=== PATIENT | male | born 1940 | race African-American/Black ===

== ENCOUNTER 2018-07-30 12:34 | Inpatient (IN) | payer BC, OTHER ==
[~2018-07-30] VITALS: Ht 180.3 cm; Wt 83.6 kg
[2018-07-30 13:17] VITALS: Ht 180.3 cm; Wt 83.6 kg
[2018-07-30] MEDS ORDERED: CEFEPIME 2GM/50 ML (PMX) 50 ML IVPB STA (13:17)
[2018-07-30] MEDS ORDERED: SODIUM CHLORIDE 0.9% 1L BAG IV* STA (13:17)
[2018-07-30] MEDS ORDERED: ACETAMINOPHEN 325 MG TAB PO STA (13:17)
[2018-07-30] MEDS ORDERED: VANCOMYCIN 1 GM (PMX) 250 ML IVPB ONE (13:30)
[2018-07-30] MEDS ORDERED: ASPI-903 PO (13:48)
[2018-07-30] MEDS ORDERED: OMEP20CA16 PO (13:53)
[2018-07-30] MEDS ORDERED: FER325 PO (13:54)
[2018-07-30] MEDS ORDERED: LOSA1TAB25 PO (13:54)
[2018-07-30] MEDS ORDERED: SIMV40TA2 PO (13:55)
[2018-07-30] MEDS ORDERED: METO-448 PO (13:55)
--- NOTE | 2018-07-30 14:14 | ERD ---
ER Documentation Chief Complaint Chief Complaint Pt. DELLA RA with c/o shakey, N/V HPI This is a 77-year-old man who was at home and his son reported that he was shaking. The patient says he was shaking heart but was not a seizure because he was awake. The patient is likely having a Rigor, or hard chill as he has a low- grade fever now. Patient states that he has had dysuria for many days with nausea vomiting and diarrhea here today. No abdominal pain no headache no flank pain. No fever until today. ROS All systems reviewed and are negative except as per history of present illness. Medications Home Meds Reported Medications Simvastatin* (Zocor*) 40 Mg Tablet, 40 MG PO QHS, #30 TAB 07/30/18 Metoprolol Tartrate* (Lopressor*) 25 Mg Tab, 25 MG PO BID, #60 TAB 07/30/18 Ferrous Sulfate* (Ferrous Sulfate*) 325 Mg Tabec, 325 MG PO DAILY, TAB 07/30/18 Losartan-Hydrochlorothiazide (Losartan-HCTZ) 100-25 Mg Tab, 1 TAB PO DAILY 07/30/18 Omeprazole* (Omeprazole*) 20 Mg Capsule.dr, 20 MG PO AC BREAKFAST, #30 CAP 07/30/18 Aspirin* (Aspirin* Chew) 81 Mg Tab.chew, 81 MG PO DAILY, TAB.CHEW 07/30/18 Allergies Allergies: Coded Allergies: No Known Allergy (Unverified , 07/30/18) PMhx/Soc History of Surgery: Yes (CABG) Anesthesia Reaction: No Hx Neurological Disorder: No Hx Respiratory Disorders: No Hx Cardiac Disorders: Yes (HTN) Hx Psychiatric Problems: No Hx Miscellaneous Medical Probl: No Hx Alcohol Use: Yes Hx Substance Use: Yes (marijuana) Hx Tobacco Use: Yes Smoking Status: Former smoker FmHx Family History: No coronary disease Physical Exam Vitals Vital Signs Date Temp Pulse Resp B/P (MAP) Pulse Ox O2 O2 Flow FiO2 Time Delivery Rate 07/30/18 110 20 109/60 97 Room Air 14:53 (76) 07/30/18 100.0 13:43 07/30/18 100.0 132 22 120/64 96 13:17 (82) Physical Exam Const: Well-developed, well-nourished Head: Atraumatic, normocephalic Eyes: Normal Conjunctiva, PERRLA, EOMI, normal sclera, no nystagmus ENT: Normal External Ears, Nose and Mouth, moist mucus membranes. Neck: Full range of motion. No meningismus, no lymphadenopathy. Resp: Clear to auscultation bilaterally, no wheezing, rhonchi, rales Cardio: Regular rate and rhythm, no murmurs, S1 S2 present Abd: Soft, non tender x 4, non distended. Normal bowel sounds, no guarding or rebound, no pulsitile abdominal masses or bruits Skin: No petechiae or rashes, no ecchymosis , no maculopapular rash Back: No midline or flank tenderness Ext: No cyanosis, or edema, FROM x 4, normal inspection, neurovascularly intact x 4 Neur: Awake and alert, STR 5/5 x 4, sensation intact x 4, no focal findings, cerebellum intact Psych: Normal Mood and Affect Result Diagram: 07/30/18 1325 07/30/18 1325 Results 24 hrs Laboratory Tests Test 07/30/18 13:20 07/30/18 13:25 07/30/18 13:39 Urine Color RUBEN Urine Clarity CLOUDY Urine pH 6.0 Urine Specific [place] 1.011 Urine Ketones NEGATIVE mg/dL Urine Nitrite POSITIVE mg/dL Urine Bilirubin NEGATIVE mg/dL Urine Urobilinogen NEGATIVE mg/dL Urine Leukocyte Esterase 3+ Rach/ul Urine Microscopic RBC > 182 /HPF Urine Microscopic WBC > 182 /HPF Urine Mucus FEW /HPF Urine Hemoglobin 3+ mg/dL Urine Glucose NEGATIVE mg/dL Urine Total Protein 3+ mg/dl White Blood Count 5.9 10^3/ul Red Blood Count 4.43 10^6/ul Hemoglobin 13.0 g/dl Hematocrit 37.5 % Mean Corpuscular Volume 84.7 fl Mean Corpuscular Hemoglobin 29.3 pg Mean Corpuscular 34.7 g/dl Hemoglobin Concent Red Cell Distribution Width 13.3 % Platelet Count 120 10^3/UL Mean Platelet Volume 11.1 fl Immature Granulocytes % 1.200 % Neutrophils % 90.0 % Lymphocytes % 7.8 % Monocytes % 0.7 % Eosinophils % 0.0 % Basophils % 0.3 % Nucleated Red Blood Cells % 0.0 /100WBC Immature Granulocytes # 0.070 10^3/ul Neutrophils # 5.3 10^3/ul Lymphocytes # 0.5 10^3/ul Monocytes # 0.0 10^3/ul Eosinophils # 0.0 10^3/ul Basophils # 0.0 10^3/ul Nucleated Red Blood Cells # 0.0 10^3/ul Sodium Level 134 mmol/L Potassium Level 3.3 mmol/L Chloride Level 99 mmol/L Carbon Dioxide Level 22 mmol/L Anion Gap 13 Blood Urea Nitrogen 18 mg/dl Creatinine 1.36 mg/dl Est Glomerular Filtrat mL/min Rate mL/min Glucose Level 147 mg/dl Calcium Level 8.7 mg/dl Total Bilirubin 1.4 mg/dl Direct Bilirubin 0.00 mg/dl Indirect Bilirubin 1.4 mg/dl Aspartate Amino 19 IU/L Transf (AST/SGOT) Alanine 28 IU/L Aminotransferase (ALT/SGPT) Alkaline Phosphatase 168 IU/L Troponin I < 0.012 ng/ml Total Protein 7.1 g/dl Albumin 3.7 g/dl Globulin 3.40 g/dl Albumin/Globulin Ratio 1.08 POC Venous Lactate 2.2 mmol/L Current Medications Medications Dose Sig/Martha Start Time Status Last (Trade) Ordered Route PRN Stop Time Admin Dose Reason Admin 650 mg ONCE STAT 07/30/18 DC 07/30/18 Acetaminophen PO 13:17 13:43 (Tylenol 07/30/18 Tab) 13:21 Cefepime HCl 50 ml @ ONCE STAT 07/30/18 DC 07/30/18 100 mls/hr IVPB 13:17 13:43 07/30/18 13:46 Vancomycin 250 ml @ ONCE ONCE 07/30/18 07/30/18 HCl 125 mls/hr IVPB 13:30 14:10 07/30/18 15:29 Sodium 2,510 ml BOLUS OVER 2 07/30/18 DC 07/30/18 Chloride HOURS STAT 13:17 13:43 (NS) IV* 07/30/18 13:21 Procedures/MDM MR #: [id number] DOS: 07/30/18 1317 Ordering MD: SUNIL LAU DO Location: E/R Room/Bed: PROCEDURE: XR Chest CLINICAL INDICATION: Possible sepsis TECHNIQUE: Frontal view of the chest COMPARISON: None available FINDINGS: The cardiomediastinal silhouette size is within normal limits. Median sternotomy wires and multiple mediastinal clips are noted. There are atherosclerotic calcifications of the aorta. Mild elevation of the right hemidiaphragm. There are prominent bilateral interstitial markings. There is no evidence of significant pleural effusion or pneumothorax. No suspicious osseous lesions. IMPRESSION: Mild prominent interstitial markings may represents mild vascular congestion or other pulmonary infiltrate . RPTAT: KK Farhat Pike Physician Date Time Electronically viewed and signed by Farhat Pike, Physician on 07/30/2018 13:53 HtN/ CC: SUNIL LAU DO [id number] EKG: Rate/Rhythm: Sinus tachycardia heart rate 124 QRS, ST, QT: NORMAL IA, QRS, QT] Impression: Sinus tachycardia Admit MDM: Patient's infectious symptoms have not stabilized and the patient is at risk of rapid decompensation. The patient will be admitted for careful hydration, antibiotic therapy, and infectious source control. Severe Sepsis criteria: Infectious source: Urine End organ damage indicated by: Elevated lactate Lactate > 2.0 mmol/L Hypotension (SBP < 90 or >40 mmHG drop or MAP < 65) Acute Resp Failure (sat < 92% w/o oxygen) [place] > 2.0 INR > 1.5 Plt < 100 Bili > 2 Sepsis Management: Time of recognition of severe sepsis: At time of lactate Within 3 hours of recognition: Blood cultures x 2 before broad-spectrum antibiotics: []Yes 30 ml/kg NS bolus []Completed Initial lactate 2.2 Repeat lactate []Not indicated as initial lactate < 2.0 Septic Shock Assessment: Any lactic acid > 4.0 []No Persistent hypotension (SBP < 90 or 40 mmHg drop, MAP < 65) despite 30 mL/kg IV fluid bolus []No : Comfort care []No Hypotension caused by: pt. baseline, med-induced, erroneous value, condition other than infection []No Refusal by patient/decision maker for: blood draw, IVF, Antibiotics, Pressors []No Accepting Care Team Current data and ongoing care discussed. Time: [] Admitting Physician: Panel Farm Crew Leader(s): Outstanding Data: []None Critical Care Time: 30minutes Treatments/Evaluations: Close monitoring and treatment of unstable vital signs, cardiorespiratory, and neurologic status, while maintaining tight balance of fluid, respiratory, and cardiac interventions. This includes the administration of emergency fluid management while maintaining close respiratory support as well as the provision of immediate and broad-spectrum antibiotic therapy, while performing a simultaneous assessment for possible sources in order to direct targeted therapy. This time includes discussing the case with the patient and the patient's family. This time also includes the consideration for invasive and chemical support to prevent cardiopulmonary collapse. This time does not include all procedures stated elsewhere in this record. This time also includes reviewing old records, labs and radiological studies. This time includes examining and re-examining the patient. Additionally, this time also includes arranging care with admitting and consulting physicians. Departure Diagnosis: Primary Impression: Sepsis Sepsis type: sepsis due to unspecified organism Qualified Codes: A41.9 - Sepsis, unspecified organism Additional Impression: Urinary tract infection Urinary tract infection type: site unspecified Hematuria presence: without hematuria Qualified Codes: N39.0 - Urinary tract infection, site not specified Condition: Stable SUNIL LAU DO Jul 30, 2018 14:14
[2018-07-30] MEDS ORDERED: SOD CHLORIDE 0.9% 1,000 ML IV SCH ×2 (15:02→17:30)
[2018-07-30] MEDS ORDERED: ONDANSETRON 4 MG INJ IV PRN (15:30)
[2018-07-30] MEDS ORDERED: ACETAMINOPHEN 325 MG TAB PO PRN (15:30)
[2018-07-30 16:55] VITALS: PULSE 109
[2018-07-30] MEDS ORDERED: POTASSIUM CHLORIDE (SR) 20 MEQ TAB PO STA (17:29)
--- NOTE | 2018-07-30 19:22 | NUR ---
END FO SHIFT AWAKE AND ALERT MALE PATIENT.VITAL SIGN WAS STABLE AND S.TACHY ON THE MONITOR.NO RESPIRATORY DISTRESS ON ROOM AIR.ON ANTIBIOTICS FOR INFECTION. KEEP ON BED ALARM FOR PREVENT FALL.RUNNING NS@75ML/HR.DEMONSTRATE HOW TO USE CALL LIGHT. PATIENT DENIES CHEST PAIN AND MONITORING PATIENT.
[2018-07-30] MEDS ORDERED: DORZ10DR5 BOTH EYES (19:45)
[2018-07-30] MEDS ORDERED: COMBIG5 BOTH EYES (19:45)
[2018-07-30] MEDS ORDERED: TRAV4OP25 BOTH EYES (19:45)
[2018-07-30 20:00] VITALS: PULSE 93
[2018-07-30 20:21] VITALS: BP 87/52; PULSE 97; RESP 18
[2018-07-30] MEDS: METOPROLOL 25 MG TAB PO SCH (21:00)
[2018-07-30] MEDS: LOSARTAN 50 MG TAB PO SCH (21:00)
[2018-07-30] MEDS: DORZOLAMIDE 2% 10 ML OPH BOTH EYES SCH (21:30)
[2018-07-30] MEDS: BRIMONIDINE 0.2%-TIMOLOL 0.5% 5ML OPH BOTH EYES SCH (21:30)
[2018-07-30] MEDS: CEFEPIME 2GM/50 ML (PMX) 50 ML IVPB SCH (21:45)
[2018-07-30] MEDS: ATORVASTATIN 40 MG TAB PO SCH (21:46)
[2018-07-30] MEDS: FAMOTIDINE 20 MG TAB PO SCH (21:46)
[2018-07-30] MEDS: LATANOPROST 0.005% 2.5 ML OPH BOTH EYES SCH (22:47)
[2018-07-30 23:12] VITALS: BP 118/63; PULSE 93; RESP 18
[2018-07-31] VITALS (12 sets, daily range): BP systolic 106–131; BP diastolic 55–72; PULSE 80–104; RESP 18–20
--- NOTE | 2018-07-31 07:45 | NUR ---
EOSS: NO ACUTE EVENTS OVERNIGHT. PATIENT VERBALIZED HE'S FEELING BETTER. NSR ON THE MONITOR.
[2018-07-31] MEDS: CEFEPIME 2GM/50 ML (PMX) 50 ML IVPB SCH ×2 (08:51→22:03)
[2018-07-31] MEDS: DORZOLAMIDE 2% 10 ML OPH BOTH EYES SCH ×2 (08:51→20:59)
[2018-07-31] MEDS: BRIMONIDINE 0.2%-TIMOLOL 0.5% 5ML OPH BOTH EYES SCH ×2 (08:51→20:59)
[2018-07-31] MEDS: ASPIRIN 81 MG TAB PO SCH (08:52)
[2018-07-31] MEDS: LOSARTAN 50 MG TAB PO SCH ×2 (08:52→21:00)
[2018-07-31] MEDS: FAMOTIDINE 20 MG TAB PO SCH ×2 (08:52→21:00)
[2018-07-31] MEDS: FERROUS SULFATE (EC) 325 MG TAB PO SCH (08:52)
[2018-07-31] MEDS: METOPROLOL 25 MG TAB PO SCH ×2 (08:53→21:00)
[2018-07-31] MEDS ORDERED: SOD CHLORIDE 0.9% 1,000 ML IV SCH (09:30)
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
--- NOTE | 2018-07-31 18:41 | NUR ---
EOSS: A/O x 4, laying comfortably in bed, VS stable, SR on monitor. Pt had gram neg. rods on blood culture, Dr. Lea aware and orders given and carried out. No other acute events. All needs attended at this time. Will endorse to oncoming shift accordingly.
[2018-07-31] MEDS: LATANOPROST 0.005% 2.5 ML OPH BOTH EYES SCH (20:59)
[2018-07-31] MEDS: ATORVASTATIN 40 MG TAB PO SCH (21:00)
[2018-08-01] VITALS (11 sets, daily range): BP systolic 110–146; BP diastolic 57–74; PULSE 68–89; RESP 18–20
[2018-08-01] MEDS: ASPIRIN 81 MG TAB PO SCH (09:11)
[2018-08-01] MEDS: BRIMONIDINE 0.2%-TIMOLOL 0.5% 5ML OPH BOTH EYES SCH ×2 (09:11→20:51)
[2018-08-01] MEDS: DORZOLAMIDE 2% 10 ML OPH BOTH EYES SCH ×2 (09:11→20:51)
[2018-08-01] MEDS: FAMOTIDINE 20 MG TAB PO SCH ×2 (09:12→20:52)
[2018-08-01] MEDS: FERROUS SULFATE (EC) 325 MG TAB PO SCH (09:12)
[2018-08-01] MEDS: METOPROLOL 25 MG TAB PO SCH ×2 (09:12→20:52)
[2018-08-01] MEDS: CEFEPIME 2GM/50 ML (PMX) 50 ML IVPB SCH (09:13)
[2018-08-01] MEDS: LOSARTAN 50 MG TAB PO SCH ×2 (09:13→20:52)
--- NOTE | 2018-08-01 10:42 | PN ---
Date/Time of Note Date/Time of Note DATE: 08/01/18 TIME: 10:31 Assessment/Plan VTE Prophylaxis Risk score (from Ns)>0 risk: 6 [place] [facility]CD contraindicated: low risk/ambulating Pharmacological prophylaxis: NA/contraindicated Pharm contraindication: low risk/ambulating Lines/Catheters [facility] Saline Lock Assessment/Plan Assessment/Plan 77-year-old male with: 1. Urinary tract infection, E coli, velez sensitive, changed abx to Cipro IV Repeat blood cultures yesterday pending Renal ultrasound wnl Monitor on telemetry for another 24 hours and d/c plan in AM if repeat blood cx negative 2. Gram-negative xochilt bacteremia, likely E coli On Cipro F/u blood cx results and repeat blood cx for clearance 3. Acute kidney injury, in setting of UTI, holding diuretics/HCTZ, renal function back to normal D/c IV fluids. 4. Hypokalemia: Resolved 5. Coronary artery disease, neg troponins Continue outpatient medications. 6. Hypertension: Continue home medications, patient on beta-blockers and losartan. 7. Hyperlipidemia: Continue statin therapy. 8. Chronic anemia: Continue iron supplementation, stable H&H. Prophylaxis: SCDs for DVT prophylaxis, patient tolerating p.o. Disposition: Patient doing well, discharge planning for tomorrow on oral ciprofloxacin as long as repeat blood cultures remain negative and admission blood cultures are confirmed to be E. coli similar to urine culture. Result Diagram: 08/01/18 0530 08/01/18 0530 Results 24hrs Laboratory Tests Test 08/01/18 05:30 White Blood Count 9.2 Red Blood Count 3.66 L Hemoglobin 10.8 L Hematocrit 31.0 L Mean Corpuscular Volume 84.7 Mean Corpuscular Hemoglobin 29.5 Mean Corpuscular Hemoglobin Concent 34.8 Red Cell Distribution Width 13.3 Platelet Count 126 L Mean Platelet Volume 11.3 H Immature Granulocytes % 0.700 H Neutrophils % 78.2 H Lymphocytes % 10.5 L Monocytes % 9.2 Eosinophils % 1.2 Basophils % 0.2 Nucleated Red Blood Cells % 0.0 Immature Granulocytes # 0.060 H Neutrophils # 7.2 Lymphocytes # 1.0 Monocytes # 0.8 Eosinophils # 0.1 Basophils # 0.0 Nucleated Red Blood Cells # 0.0 Sodium Level 137 Potassium Level 3.8 Chloride Level 107 Carbon Dioxide Level 24 Anion Gap 6 Blood Urea Nitrogen 18 Creatinine 1.07 Est Glomerular Filtrat Rate mL/min Glucose Level 98 Calcium Level 8.5 Phosphorus Level 2.5 Magnesium Level 1.9 Subjective 24 Hr Interval Summary Free Text/Dictation Patient doing well, afebrile, WBC normalized, vital signs within normal. Urine culture with E. coli pansensitive, switching antibiotics to ciprofloxacin. Follow-up repeat blood cultures and finalized blood cultures on admission Exam/Review of Systems Vital Signs Vitals Vital Signs Date Temp Pulse Resp B/P (MAP) Pulse Ox O2 O2 Flow FiO2 Time Delivery Rate 08/01/18 85 08:42 08/01/18 99.4 19 128/70 96 07:39 (89) 07/31/18 Room Air 15:47 Intake and Output 07/31/18 07/31/18 08/01/18 1515:00 23:00 07:00 IntakeIntake Total 2000 ml OutputOutput Total 1500 ml BalanceBalance 500 ml Exam Constitutional: alert, oriented, well developed Respiratory: clear to auscultation, normal air movement Cardiovascular: regular rate and rhythm, nl pulses Gastrointestinal: soft, non-tender Musculoskeletal: nl extremities to inspection Extremities: normal pulses, other (No edema, clubbing or cyanosis) Neurological: PRODUCTION LINE MANAGER II-XII intact, nl mental status, nl speech, nl strength Medications Medications Current Medications Aspirin (Aspirin) 81 mg DAILY PO Last administered on 08/01/18at 09:11; Admin Dose 81 MG; Start 07/31/18 at 09:00 Ferrous Sulfate (Ferrous Sulfate (Ec)) 325 mg DAILY PO Last administered on 08/01/18at 09:12; Admin Dose 325 MG; Start 07/31/18 at 09:00 Metoprolol Tartrate (Lopressor) 25 mg BID PO Last administered on 08/01/18at 09:12; Admin Dose 25 MG; Start 07/30/18 at 21:00 Losartan Potassium (Cozaar) 50 mg BID PO Last administered on 08/01/18at 09:13; Admin Dose 50 MG; Start 07/30/18 at 21:00 Atorvastatin Calcium (Lipitor) 40 mg HS PO Last administered on 07/31/18at 21:00; Admin Dose 40 MG; Start 07/30/18 at 21:00 Famotidine (Pepcid) 20 mg BID PO Last administered on 08/01/18 09:12; Admin Dose 20 MG; Start 07/30/18 at 21:00 Latanoprost (Xalatan) 1 drop HS BOTH EYES Last administered on 07/31/18 20:59; Admin Dose 1 DROP; Start 07/30/18 at 21:30 Dorzolamide HCl (Trusopt) 1 drop BID BOTH EYES Last administered on 08/01/18 09:11; Admin Dose 1 DROP; Start 07/30/18 at 21:30 Brimonidine/ Timolol (Combigan Oph) 1 drop BID BOTH EYES Last administered on 08/01/18 09:11; Admin Dose 1 DROP; Start 07/30/18 at 21:30 Ciprofloxacin/ Dextrose 200 ml @ 200 mls/hr Q12 IVPB ; Start 08/01/18 at 10:30 PARESH HATFIELD Aug 01, 2018 10:41
[2018-08-01] MEDS: CIPROFLOXACIN 400MG/D5W 200 ML IVPB SCH ×2 (11:43→20:53)
[2018-08-01] MEDS: ATORVASTATIN 40 MG TAB PO SCH (20:52)
[2018-08-01] MEDS: LATANOPROST 0.005% 2.5 ML OPH BOTH EYES SCH (20:52)
[2018-08-02] VITALS (7 sets, daily range): BP systolic 117–125; BP diastolic 59–69; PULSE 70–93; RESP 18–20
--- NOTE | 2018-08-02 01:20 | NUR ---
Positive blood culture for gram positive cocci in clusters read by Larissa. Dr. Lea notified, no new orders given.
--- NOTE | 2018-08-02 06:37 | NUR ---
EOSS: Pt resting in bed. VS stable. Denies pain, SOB. Pt to finish abx, and be d/c home w/ home abx. Rounded on hourly, bed in locked and low position, bed alarm green, bed rail x2, call light within reach, pt reminded to call when in need assistance. Will endorse to dayshift RN.
[2018-08-02] MEDS: CIPROFLOXACIN 400MG/D5W 200 ML IVPB SCH (08:44)
[2018-08-02] MEDS: METOPROLOL 25 MG TAB PO SCH (08:44)
[2018-08-02] MEDS: FAMOTIDINE 20 MG TAB PO SCH (08:44)
[2018-08-02] MEDS: ASPIRIN 81 MG TAB PO SCH (08:44)
[2018-08-02] MEDS: LOSARTAN 50 MG TAB PO SCH (08:44)
[2018-08-02] MEDS: FERROUS SULFATE (EC) 325 MG TAB PO SCH (08:44)
[2018-08-02] MEDS: BRIMONIDINE 0.2%-TIMOLOL 0.5% 5ML OPH BOTH EYES SCH (08:45)
[2018-08-02] MEDS: DORZOLAMIDE 2% 10 ML OPH BOTH EYES SCH (08:45)
--- NOTE | 2018-08-02 10:13 | PN ---
Date/Time of Note Date/Time of Note DATE: 08/02/18 TIME: 10:10 Assessment/Plan VTE Prophylaxis Risk score (from Ns)>0 risk: 4 SCD applied (from Ns): Yes Pharmacological prophylaxis: NA/contraindicated Pharm contraindication: low risk/ambulating Lines/Catheters IV C[facility]ter Type [facility]from [facility] Saline Lock Assessment/Plan Assessment/Plan 77-year-old male with: 1. Urinary tract infection, E coli, velez sensitive, changed abx to Cipro IV. Well-tolerated. Repeat blood cultures yesterday NGTD Renal ultrasound wnl Discharge home today with oral Cipro to complete total of 14-day course for complicated UTI 2. E. coli bacteremia, from urinary tract infection, gram-positive bacteria seen on admission blood culture likely to be contaminant. Repeat blood cultures are negative. Patient to be discharged on ciprofloxacin for 11 more days. 3. Acute kidney injury, in setting of UTI, holding diuretics/HCTZ, renal function back to normal. Resume home meds 4. Hypokalemia: Resolved 5. Coronary artery disease, neg troponins Continue outpatient medications. 6. Hypertension: Continue home medications, patient on beta-blockers and losartan. 7. Hyperlipidemia: Continue statin therapy. 8. Chronic anemia: Continue iron supplementation, stable H&H. Prophylaxis: SCDs for DVT prophylaxis, patient tolerating p.o., probiotics to be added Disposition: Discharge home, follow-up with primary care physician within 1 week. Result Diagram: 08/02/18 0533 08/02/18 0533 Results 24hrs Laboratory Tests Test 08/02/18 05:33 White Blood Count 5.9 # Red Blood Count 3.74 L Hemoglobin 11.0 L Hematocrit 31.1 L Mean Corpuscular Volume 83.2 Mean Corpuscular Hemoglobin 29.4 Mean Corpuscular Hemoglobin Concent 35.4 Red Cell Distribution Width 13.3 Platelet Count 144 Mean Platelet Volume 11.3 H Immature Granulocytes % 0.200 Neutrophils % 66.9 Lymphocytes % 18.4 Monocytes % 11.0 Eosinophils % 3.2 Basophils % 0.3 Nucleated Red Blood Cells % 0.0 Immature Granulocytes # 0.010 Neutrophils # 4.0 Lymphocytes # 1.1 Monocytes # 0.7 Eosinophils # 0.2 Basophils # 0.0 Nucleated Red Blood Cells # 0.0 Sodium Level 138 Potassium Level 3.8 Chloride Level 104 Carbon Dioxide Level 25 Anion Gap 9 Blood Urea Nitrogen 17 Creatinine 0.86 Est Glomerular Filtrat Rate mL/min Glucose Level 95 Calcium Level 8.8 Subjective 24 Hr Interval Summary Free Text/Dictation Patient doing well, afebrile, repeat blood cultures no growth to date, admission blood culture and urine blood culture growing E. coli. Gram-positive in admission blood culture likely a contaminant. Patient remains afebrile, WBC within normal with normal differential, discharge home today on oral ciprof loxacin. Exam/Review of Systems Vital Signs Vitals Vital Signs Date Temp Pulse Resp B/P (MAP) Pulse Ox O2 O2 Flow FiO2 Time Delivery Rate 08/02/18 87 09:00 08/02/18 98.1 18 121/59 97 Room Air 04:16 (79) Intake and Output 08/01/18 08/01/18 08/02/18 1515:00 23:00 07:00 IntakeIntake Total 1000 ml 1100 ml OutputOutput Total 1500 ml 1000 ml BalanceBalance -500 ml 100 ml Exam Constitutional: alert, oriented, well developed Respiratory: clear to auscultation, normal air movement Cardiovascular: regular rate and rhythm, nl pulses Gastrointestinal: soft, non-tender Musculoskeletal: nl extremities to inspection, nl gait and stance, other (Uses a FWW) Extremities: normal pulses, other (No edema, clubbing or cyanosis) Neurological: COMMERCIAL ATTACHE II-XII intact, nl mental status, nl speech, nl strength (At baseline) Medications Medications Current Medications Aspirin (Aspirin) 81 mg DAILY PO Last administered on 08/02/18 08:44; Admin Dose 81 MG; Start 07/31/18 at 09:00 Ferrous Sulfate (Ferrous Sulfate (Ec)) 325 mg DAILY PO Last administered on 08/02/18 08:44; Admin Dose 325 MG; Start 07/31/18 at 09:00 Metoprolol Tartrate (Lopressor) 25 mg BID PO Last administered on 08/02/18 08:44; Admin Dose 25 MG; Start 07/30/18 at 21:00 Losartan Potassium (Cozaar) 50 mg BID PO Last administered on 08/02/18 08:44; Admin Dose 50 MG; Start 07/30/18 at 21:00 Atorvastatin Calcium (Lipitor) 40 mg HS PO Last administered on 08/01/18at 20:52; Admin Dose 40 MG; Start 07/30/18 at 21:00 Famotidine (Pepcid) 20 mg BID PO Last administered on 08/02/18 08:44; Admin Dose 20 MG; Start 07/30/18 at 21:00 Latanoprost (Xalatan) 1 drop HS BOTH EYES Last administered on 08/01/18 20:52; Admin Dose 1 DROP; Start 07/30/18 at 21:30 Dorzolamide HCl (Trusopt) 1 drop BID BOTH EYES Last administered on 08/02/18 08:45; Admin Dose 1 DROP; Start 07/30/18 at 21:30 Brimonidine/ Timolol (Combigan Oph) 1 drop BID BOTH EYES Last administered on 08/02/18 08:45; Admin Dose 1 DROP; Start 07/30/18 at 21:30 Ciprofloxacin/ Dextrose 200 ml @ 200 mls/hr Q12 IVPB Last administered on 08/02/18 08:44; Admin Dose 200 MLS/HR; Start 08/01/18 at 10:30 PARESH HATFIELD Aug 02, 2018 10:13
--- NOTE | 2018-08-02 10:15 | PDOCDIS ---
Discharge Instructions CONDITION [id number] Patient Condition: [id number] Stable HOME CARE INSTRUCTIONS: [id number] Special Diet: [id number] cardiac diet ACTIVITY: [id number] Activity Restrictions: [id number] Slowly Increase Activity FOLLOW UP/APPOINTMENTS Follow-up Plan Follow-up with primary care physician within 1 week. PARESH HATFIELD Aug 02, 2018 10:15
[2018-08-02] MEDS ORDERED: LACT1CAP28 PO (10:21)
[2018-08-02] MEDS ORDERED: CIPR500T4 PO (10:21)
[2018-08-02] MEDS ORDERED: LACTOBACILLUS RHAMNOSUS CAP PO SCH (11:30)
--- NOTE | 2018-08-02 12:40 | NUR ---
DISCHARGE- Went over discharge planning with pt and daughter bedside. New prescriptions given to pt, went over medications and side effects. Pt to follow up with PCP in 1 week. Pt has front wheel walker. Walking out of the hospital. No further questions or concerns from the pt. IV DCed.
--- NOTE | 2018-08-02 12:40 | DS ---
Date/Time of Note Date/Time of Note DATE: 08/02/18 TIME: 12:34 Discharge Summary Admission/Discharge Info Admit Date/Time Jul 30, 2018 at 15:03 Discharge Date/Time Aug 02, 2018 at 12:19 Discharge Diagnosis 1. Urinary tract infection, E coli 2. E. coli bacteremia, from urinary tract infection 3. Acute kidney injury, resolved. 4. Hypokalemia: Resolved 5. Coronary artery disease. 6. Hypertension. 7. Hyperlipidemia. 8. Chronic anemia. Patient Condition: Stable Consults none Procedures none Hx of Present Illness Chief complaint: Chills History of presenting illness: This is a 77-year-old male with history of coronary artery disease, status post CABG x4, hypertension, hyperlipidemia, questionable history of bone marrow disease who presented the emergency department with a complaint of chills yesterday morning and overnight. Patient was found to be febrile, he also reported urinary frequency, no hematuria, dysuria for 2 days. He reports increasing lethargy for 2 days, nausea and vomiting yesterday, no diarrhea, decreased appetite for 2 days. He denies any abdominal pain flank pain. He reports that he did have episode of chest pain 2-3 days ago which is not resolved, no diaphoresis, no shortness of breath. He does ambulate with a walker at home, he is otherwise active and compliant with his outpatient medication and follow-up with physicians. Patient was diagnosed with UTI and sepsis, admitted to telemetry bed, started on broad-spectrum antibiotic. Blood culture this morning with gram-negative rods. He is currently on cefepime, vancomycin has been discontinued. Repeat blood cultures have been ordered along with renal ultrasound. Repeat labs are pending. Hospital Course Patient was started on cefepime on admission given sepsis and bacteremia, urine culture and blood culture came back with gram-negative rods which was later finalized as Escherichia coli pansensitive, patient has been switched to ciprofloxacin which he has tolerated well for 24 hours and will be discharged today on oral ciprofloxacin to complete a total of 14 days for complicated urinary tract infection. He has 12 more days of antibiotics. He has been put on probiotics. Patient is discharged home in stable condition and on room air. Home Meds Active Scripts Ciprofloxacin Hcl* (Ciprofloxacin Hcl*) 500 Mg Tablet, 500 MG PO BID for 12 Days, TAB Prov:PARESH HATFIELD 12/30/18 Lactobacillus Rhamnosus GG (Culturelle) 1 Each Capsule, 1 CAP PO BID for 30 Days, CAP Prov:PARESH HATFIELD 08/02/18 Reported Medications Travoprost* (Travatan*) 0.004%-2.5 Ml Opht, 1 DROP BOTH EYES QHS, #1 BOTTLE 07/30/18 Brimonidine/Timolol* (Combigan*) 5 Ml Drops, 1 DROP BOTH EYES BID, BOTTLE 07/30/18 Dorzolamide Hcl* (Dorzolamide Hcl*) 10 Ml Drops, 1 DROP BOTH EYES BID, #1 EA 07/30/18 Simvastatin* (Zocor*) 40 Mg Tablet, 40 MG PO QHS, #30 TAB 07/30/18 Metoprolol Tartrate* (Lopressor*) 25 Mg Tab, 25 MG PO BID, #60 TAB 07/30/18 Ferrous Sulfate* (Ferrous Sulfate*) 325 Mg Tabec, 325 MG PO DAILY, TAB 07/30/18 Losartan-Hydrochlorothiazide (Losartan-HCTZ) 100-25 Mg Tab, 1 TAB PO DAILY 07/30/18 Omeprazole* (Omeprazole*) 20 Mg Capsule.dr, 20 MG PO AC BREAKFAST, #30 CAP 07/30/18 Aspirin* (Aspirin* Chew) 81 Mg Tab.chew, 81 MG PO DAILY, TAB.CHEW 07/30/18 Follow-up Plan Follow-up with primary care physician within 1 week. Primary Care Provider Not On Staff Doctor Time spent on discharge: > 30 minutes Pending Labs Laboratory Tests Test 08/02/18 05:33 White Blood Count 5.9 10^3/ul (4.8-10.8) Red Blood Count 3.74 10^6/ul (4.70-6.10) Hemoglobin 11.0 g/dl (14.0-18.0) Hematocrit 31.1 % (42.0-52.0) Mean Corpuscular Volume 83.2 fl (82.0-101.0) Mean Corpuscular Hemoglobin 29.4 pg (29.0-33.0) Mean Corpuscular Hemoglobin Concent 35.4 g/dl (32.0-37.0) Red Cell Distribution Width 13.3 % (11.5-14.5) Platelet Count 144 10^3/UL (140-415) Mean Platelet Volume 11.3 fl (7.4-10.4) Immature Granulocytes % 0.200 % (0.001-0.429) Neutrophils % 66.9 % (39.0-77.0) Lymphocytes % 18.4 % (15.0-51.0) Monocytes % 11.0 % (0.0-11.0) Eosinophils % 3.2 % (0.0-7.0) Basophils % 0.3 % (0.0-2.0) Nucleated Red Blood Cells % 0.0 /100WBC (0.0-0.0) Immature Granulocytes # 0.010 10^3/ul (0.0-0.031) Neutrophils # 4.0 10^3/ul (1.6-7.5) Lymphocytes # 1.1 10^3/ul (0.8-2.9) Monocytes # 0.7 10^3/ul (0.3-0.9) Eosinophils # 0.2 10^3/ul (0.0-0.5) Basophils # 0.0 10^3/ul (0.0-0.1) Nucleated Red Blood Cells # 0.0 10^3/ul (0.0-0.0) Sodium Level 138 mmol/L (135-144) Potassium Level 3.8 mmol/L (3.5-5.1) Chloride Level 104 mmol/L (97-110) Carbon Dioxide Level 25 mmol/L (21-31) Anion Gap 9 (5-13) Blood Urea Nitrogen 17 mg/dl (7-20) Creatinine 0.86 mg/dl (0.61-1.24) Est Glomerular Filtrat Rate mL/min mL/min (>60) Glucose Level 95 mg/dl (70-220) Calcium Level 8.8 mg/dl (8.4-10.2) PARESH HATFIELD Aug 02, 2018 12:40
== END 2018-08-02 12:19 | disposition home or self-care (01) | DRG 872 ==
LOC: E/R 12:34 → TEL 15:03
PROVIDERS: ADMIT Internal Medicine; ATTEND Internal Medicine
DX: A41.51 Sepsis due to Escherichia coli [E. coli] (principal); N39.0 Urinary tract infection, site not specified; N17.9 Acute kidney failure, unspecified; I25.10 Atherosclerotic heart disease of native coronary artery without angina pectoris; Z95.1 Presence of aortocoronary bypass graft; I10 Essential (primary) hypertension; E78.5 Hyperlipidemia, unspecified; E87.6 Hypokalemia; D64.9 Anemia, unspecified
CPT/HCPCS: 36415; 71045; 76775; 80048; 80053; 81001; 82550; 82553; 83605; 83735; 84100; 84484; 85025; 87040; 87086; 93005; 96374; 96375; J0692; J0744; J3370; J7030